=== PATIENT | male | born 1970 | race Caucasian/White ===

== ENCOUNTER 2016-12-16 11:54 | Emergency (ER) | payer MEDICAID ==
[~2016-12-16] VITALS: Ht 188 cm; Wt 85.3 kg
[2016-12-16 12:05] VITALS: BP_SYST 127
[2016-12-16 12:49] LABS: BLOOD, URINE NEGATIVE (NEGATIVE); CLARITY/URINE CLEAR (CLEAR); COLOR,URINE YELLOW (YELLOW); GLUCOSE,URINE NEGATIVE (NEGATIVE); KETONES,URINE NEGATIVE (NEGATIVE); LEUKOCYTE ESTERASE ,URINE NEGATIVE (NEGATIVE); NITRITE, URINE NEGATIVE (NEGATIVE); PH,URINE 5.5 (5.0-8.0); PROTEIN URINE TRACE (NEGATIVE); UROBILINOGEN,URINE 0.2 (0.2-1.0)
[2016-12-16 12:58] LABS: BILIRUBIN,URINE 1+ (NEGATIVE)
[2016-12-16 13:02] LABS: BACTERIA,URINE FEW /HPF (None Seen); MUCUS,URINE 1+ /LPF (None Seen); RBC,URINE 0-3 /HPF (0-3); WBC,URINE 0-3 /HPF (0-3)
[2016-12-16 13:02] LABS: CALCIUM 9.1 mg/dL (8.4-11.0); CREATININE 1.04 mg/dL (0.55-1.30); POTASSIUM 3.7 mmol/L (3.5-5.1)
[2016-12-16 13:03] LABS: BASOPHILS # (AUTO) 0.1 K/uL (0.0-0.2); BASOPHILS % (AUTO) 1.5 % (0.0-2.0); EOSINOPHILS # (AUTO) 0.3 K/uL (0.0-0.4); EOSINOPHILS % (AUTO) 3.9 % (0.0-4.0); HEMATOCRIT 53.4 % (36-54); HEMOGLOBIN 17.5 g/dL (14.0-18.0); LYMPHOCYTES # (AUTO) 1.5 K/uL (1.0-5.5); LYMPHOCYTES % (AUTO) 18.5 % (20.5-51.5); MEAN CORPUSCULAR HEMOGLOBIN 32 pg (27-31); MEAN CORPUSCULAR HGB CONC 33 % (32-36); MEAN CORPUSCULAR VOLUME 97 fL (79.0-98.0); MONOCYTES # (AUTO) 0.5 K/uL (0.0-1.0); MONOCYTES % (AUTO) 6.4 % (1.7-9.3); NEUTROPHILS # (AUTO) 5.5 K/uL (1.8-7.7); NEUTROPHILS % (AUTO) 69.7 % (40.0-70.0); PLATELET COUNT (AUTO) 134 K/uL (130-430); RED CELL DISTRIBUTION WIDTH 12.9 % (9.0-15.0); WHITE BLOOD COUNT (AUTO) 7.9 K/uL (4.8-10.8)
[2016-12-16 13:06] LABS: TOTAL BILIRUBIN 0.5 mg/dL (0.0-1.0); TOTAL PROTEIN, SERUM 7.8 g/dL (6.4-8.3)
[2016-12-16 13:08] LABS: PROTHROMBIN TIME 10.7 SECS (9.5-12.5)
[2016-12-16 14:03] VITALS: BP_SYST 126
== END 2016-12-16 14:03 | disposition home or self-care (01) ==
LOC: SED 11:54
DX: R10.84 Generalized abdominal pain (principal); R11.2 Nausea with vomiting, unspecified; R19.7 Diarrhea, unspecified
CPT/HCPCS: 36415; 80053; 81000-TC; 82150-TC; 83690-TC; 85025; 85610-TC; 85730-TC; 99285

== ENCOUNTER 2016-12-27 05:01 | Emergency (ER) | payer MEDICAID ==
[~2016-12-27] VITALS: Ht 185.4 cm; Wt 83.9 kg
[2016-12-27 05:01] VITALS: BP 148/96; PULSE 76; RESP 18; TEMP 97.4; O2SAT 98
--- NOTE | 2016-12-27 05:01 | NUR ---
Patient to ER bed 6 to gown for evaluation. Side rails up. Report given to OLIVE HERNANDEZ.
--- NOTE | 2016-12-27 05:30 | NUR ---
PT C/O LEFT FLANK PAIN 02/14 SINCE TUESDAY, NON RADIATING. NO N/V/D. NO SOB OR DISTRESS. SAFETY PRECAUTIONS IN PLACE, WILL CONTINUE TO MONITOR.
--- NOTE | 2016-12-27 05:45 | NUR ---
ER Dr. MADDOX at bedside examining patient.
[2016-12-27] MEDS ORDERED: NACL 0.9% 1,000 ML IV ONE ×2 (05:49→07:45)
--- NOTE | 2016-12-27 05:55 | NUR ---
Pt complaining of 7/10 sharp pain in left flank, will notify Dr. Julian.
[2016-12-27] MEDS ORDERED: KETOROLAC TROMETHAMINE 30 MG VIAL IVP ONE (06:00)
[2016-12-27] MEDS ORDERED: MORPHINE 4 MG/ML INJ. SYRINGE IVP ONE ×2 (06:00→07:45)
--- NOTE | 2016-12-27 06:05 | NUR ---
# 20 gauge angiocath placed to left hand. Use of asceptic technique. Opsite placed over site. Blood return noted. Blood for lab drawn from site. Flushed with 10 cc of normal saline. No evidence of infiltration noted. Patient tolerated well.
[2016-12-27 07:12] LABS: BILIRUBIN,URINE NEGATIVE (NEGATIVE); BLOOD, URINE 2+ (NEGATIVE); CLARITY/URINE SL HAZY (CLEAR); COLOR,URINE YELLOW (YELLOW); GLUCOSE,URINE NEGATIVE (NEGATIVE); KETONES,URINE NEGATIVE (NEGATIVE); LEUKOCYTE ESTERASE ,URINE 1+ (NEGATIVE); NITRITE, URINE NEGATIVE (NEGATIVE); PH,URINE 7.5 (5.0-8.0); PROTEIN URINE NEGATIVE (NEGATIVE); UROBILINOGEN,URINE 0.2 (0.2-1.0)
--- NOTE | 2016-12-27 07:15 | NUR ---
Pt reports pain continuing to resolve.No acute distress noted.
--- NOTE | 2016-12-27 07:17 | NUR ---
ENDORSED CARE TO DAY NURSE MARY ROLON AND MARY HARLEY AT BEDSIDE.
[2016-12-27 07:32] LABS: BACTERIA,URINE FEW /HPF (None Seen)
[2016-12-27 07:39] LABS: CALCIUM 7.9 mg/dL (8.4-11.0); CREATININE 0.74 mg/dL (0.55-1.30); POTASSIUM 3.5 mmol/L (3.5-5.1)
[2016-12-27 07:40] LABS: BASOPHILS # (AUTO) 0.1 K/uL (0.0-0.2); BASOPHILS % (AUTO) 1.2 % (0.0-2.0); EOSINOPHILS # (AUTO) 0.2 K/uL (0.0-0.4); EOSINOPHILS % (AUTO) 1.9 % (0.0-4.0); HEMATOCRIT 42.4 % (36-54); HEMOGLOBIN 14.3 g/dL (14.0-18.0); LYMPHOCYTES # (AUTO) 1.6 K/uL (1.0-5.5); LYMPHOCYTES % (AUTO) 16.3 % (20.5-51.5); MEAN CORPUSCULAR HEMOGLOBIN 33 pg (27-31); MEAN CORPUSCULAR HGB CONC 34 % (32-36); MEAN CORPUSCULAR VOLUME 97 fL (79.0-98.0); MONOCYTES # (AUTO) 0.5 K/uL (0.0-1.0); MONOCYTES % (AUTO) 4.7 % (1.7-9.3); NEUTROPHILS # (AUTO) 7.4 K/uL (1.8-7.7); NEUTROPHILS % (AUTO) 75.9 % (40.0-70.0); PLATELET COUNT (AUTO) 108 K/uL (130-430); RED BLOOD CELL COUNT(AUTO) 4.37 MIL/uL (4.2-6.2); RED CELL DISTRIBUTION WIDTH 13.3 % (9.0-15.0); WHITE BLOOD COUNT (AUTO) 9.8 K/uL (4.8-10.8)
[2016-12-27 07:44] LABS: ALBUMIN 3.2 g/dL (3.4-4.8); TOTAL BILIRUBIN 0.5 mg/dL (0.0-1.0); TOTAL PROTEIN, SERUM 6.1 g/dL (6.4-8.3)
[2016-12-27] MEDS ORDERED: cefTRIAXone 1 GM IVPB PREMIX 50 ML IV ONE (07:45)
--- NOTE | 2016-12-27 07:50 | NUR ---
Pt reports continued 6/10 pain left flank.
--- NOTE | 2016-12-27 08:05 | NUR ---
After administration of morphine pt is complaining of burning and itching to left hand. Discussed with Dr. Julian. New order for Benadryl 25mg, which was given as ordered.
[2016-12-27] MEDS ORDERED: DIPHENHYDRAMINE INJ 50 MG/ML VIAL IVP ONE (08:15)
[2016-12-27 09:00] VITALS: BP 137/84; PULSE 54; RESP 20; TEMP 97.4; O2SAT 96
--- NOTE | 2016-12-27 09:00 | NUR ---
Patient given written and verbal discharge instructions and verbalizes understanding. ER MD discussed with patient the results and treatment provided including ACI. Patient in stable condition. ID arm band removed. IV catheter removed intact and dressing applied, no active bleeding. Rx of Macrobid and Naprosyn given. Patient educated on pain management and to follow up with PMD. Pain Scale 1. Opportunity for questions provided and answered.
== END 2016-12-27 09:00 | disposition home or self-care (01) ==
LOC: SED 05:01
DX: N20.0 Calculus of kidney (principal); K21.9 Gastro-esophageal reflux disease without esophagitis; Z87.442 Personal history of urinary calculi
CPT/HCPCS: 36415; 74176; 80053; 81000; 85025; 87086; 96361; 96365; 96375; 96376; 99285; J0696; J1200; J1885; J2270; J7030

== ENCOUNTER 2018-05-28 19:24 | Emergency (ER) | payer MEDICAID ==
[~2018-05-28] VITALS: Ht 188 cm; Wt 81.6 kg
[2018-05-28 19:34] VITALS: BP_SYST 149
[2018-05-28] MEDS ORDERED: LIDOCAINE 2%, 20 ML MDV ONE (20:42)
[2018-05-28] MEDS ORDERED: DIPH-TET-PERTUS Vaccine 0.5 ML VIAL (ADACEL) I.M. ONE (21:00)
[2018-05-28] MEDS ORDERED: BACITRACIN 1 GM OINT TP ONE (21:00)
== END 2018-05-28 21:28 | disposition home or self-care (01) ==
LOC: SED 19:24
DX: S61.213A Laceration without foreign body of left middle finger without damage to nail, initial encounter (principal); K21.9 Gastro-esophageal reflux disease without esophagitis; Z87.442 Personal history of urinary calculi; W26.0XXA Contact with knife, initial encounter; Y93.89 Activity, other specified; Y92.89 Other specified places as the place of occurrence of the external cause; Y99.8 Other external cause status
CPT/HCPCS: 12001; 90471; 90715; 99283; J2001

== ENCOUNTER 2018-11-30 00:02 | Emergency (ER) | payer SELFPAY ==
[~2018-11-30] VITALS: Ht 188 cm; Wt 83.9 kg
--- NOTE | 2018-11-30 00:35 | NUR ---
Patient to ER bed 2 to gown for evaluation. Side rails up.
[2018-11-30 00:38] VITALS: BP_SYST 128
--- NOTE | 2018-11-30 00:40 | NUR ---
Pt C/O Lt finger pain since Tuesday. Pt states he cut his 4th digit on the LT hand with "plastic glass". Tetanus shot is up to date. Finger is swollen and pink, cap refill is immediate, denies any other symptoms at this time. Will continue to monitor.
--- NOTE | 2018-11-30 00:50 | NUR ---
ER Dr. Garcia at bedside examining patient.
[2018-11-30] MEDS ORDERED: IBUPROFEN 800 MG TABLET PO ONE (01:00)
[2018-11-30] MEDS ORDERED: SULFAMETHOXAZOLE/TRIMETHOPR DS 1 TABLET PO ONE (01:00)
--- NOTE | 2018-11-30 01:30 | NUR ---
Patient given written and verbal discharge instructions and verbalizes understanding. ER MD discussed with patient the results and treatment provided. Patient in stable condition. ID arm band removed. Rx of Bactrim given. Patient educated on pain management and to follow up with PMD. Pain Scale 0/10. Opportunity for questions provided and answered. Medication side effect fact sheet provided.
[2018-11-30 01:31] VITALS: BP_SYST 128
== END 2018-11-30 01:30 | disposition home or self-care (01) ==
LOC: SED 00:02
DX: L08.89 Other specified local infections of the skin and subcutaneous tissue (principal); M79.645 Pain in left finger(s); K21.9 Gastro-esophageal reflux disease without esophagitis; Z87.442 Personal history of urinary calculi
CPT/HCPCS: 99283

== ENCOUNTER 2018-12-02 23:25 | Emergency (ER) | payer MEDICAID ==
[~2018-12-02] VITALS: Ht 185.4 cm; Wt 83.9 kg
[2018-12-02 23:35] VITALS: BP_SYST 166
[2018-12-03] MEDS ORDERED: NACL 0.9% 1,000 ML IV ONE (00:15)
[2018-12-03] MEDS ORDERED: fentaNYL CITRATE/PF 100 MCG/2 ML AMP IVP ONE ×2 (00:15→01:30)
[2018-12-03 00:57] LABS: BASOPHILS # (AUTO) 0.1 K/uL (0.0-0.2); BASOPHILS % (AUTO) 0.9 % (0.0-2.0); EOSINOPHILS # (AUTO) 0.6 K/uL (0.0-0.4); EOSINOPHILS % (AUTO) 4.8 % (0.0-4.0); HEMATOCRIT 47.5 % (36-54); HEMOGLOBIN 16.2 g/dL (14.0-18.0); LYMPHOCYTES # (AUTO) 1.9 K/uL (1.0-5.5); LYMPHOCYTES % (AUTO) 14.3 % (20.5-51.5); MEAN CORPUSCULAR HEMOGLOBIN 33 pg (27-31); MEAN CORPUSCULAR HGB CONC 34 % (32-36); MEAN CORPUSCULAR VOLUME 97 fL (79.0-98.0); MONOCYTES # (AUTO) 0.6 K/uL (0.0-1.0); MONOCYTES % (AUTO) 4.5 % (1.7-9.3); PLATELET COUNT (AUTO) 179 K/uL (130-430); RED CELL DISTRIBUTION WIDTH 13.9 % (9.0-15.0); WHITE BLOOD COUNT (AUTO) 13.2 K/uL (4.8-10.8)
[2018-12-03] MEDS ORDERED: CLINDAMYCIN 900 mg/50mL D5W 50 ML IV ONE (01:00)
[2018-12-03 01:09] LABS: CALCIUM 8.8 mg/dL (8.4-11.0); CREATININE 1.08 mg/dL (0.55-1.30); POTASSIUM 3.5 mmol/L (3.5-5.1)
[2018-12-03 01:14] LABS: ALBUMIN 3.9 g/dL (3.4-4.8); INR 0.9 (0.80-1.20); PROTHROMBIN TIME 9.2 SECS (9.5-12.5); TOTAL BILIRUBIN 0.7 mg/dL (0.0-1.0)
[2018-12-03] MEDS ORDERED: IBUP-1969 PO (01:16)
[2018-12-03 01:20] LABS: NEUTROPHILS % (AUTO) 75.5 % (40.0-70.0)
[2018-12-03 02:55] VITALS: BP_SYST 146
== END 2018-12-03 02:55 | disposition home or self-care (01) ==
LOC: SED 23:25
DX: L03.012 Cellulitis of left finger (principal); K21.9 Gastro-esophageal reflux disease without esophagitis; Z87.442 Personal history of urinary calculi
CPT/HCPCS: 29130; 36415; 73130; 80053; 83605; 85025; 85610; 85730; 87040; 96365; 96375; 99284; J3010; J3490; J7030

== ENCOUNTER 2018-12-06 00:48 | Inpatient (IN) | payer MEDICAID ==
[~2018-12-06] VITALS: Ht 188 cm; Wt 83.9 kg
[~2018-12-06 00:48] MED LIST: IBUP-1969 PO
[2018-12-06 01:00] VITALS: BP_SYST 138
--- NOTE | 2018-12-06 01:00 | NUR ---
Patient to ER bed 04 to gown for evaluation. Side rails up.
--- NOTE | 2018-12-06 01:05 | NUR ---
Patient AOx4, ambulatory, presents to ER with complaint of left 4th finger discharge, erythema, and swelling x 2 weeks. Patient states throbbing 9/10 pain to site. 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 Patient states since incident initially happend, he has been seen in ER 3 times. Patient states taking Keflex and Tramadol with minimal relief. Patient states he noted discoloration "white and purple" to finger today. No report of fever. at bedside.
--- NOTE | 2018-12-06 01:15 | NUR ---
ER MD Santnaa at bedside for medical evaluation.
[2018-12-06 02:01] LABS: HEMATOCRIT 42.3 % (36-54); HEMOGLOBIN 14.7 g/dL (14.0-18.0); MEAN CORPUSCULAR HEMOGLOBIN 33 pg (27-31); MEAN CORPUSCULAR HGB CONC 35 % (32-36); MEAN CORPUSCULAR VOLUME 96 fL (79.0-98.0); PLATELET COUNT (AUTO) 115 K/uL (130-430); RED BLOOD CELL COUNT(AUTO) 4.43 MIL/uL (4.2-6.2); RED CELL DISTRIBUTION WIDTH 13.6 % (9.0-15.0); WHITE BLOOD COUNT (AUTO) 10.9 K/uL (4.8-10.8)
--- NOTE | 2018-12-06 02:12 | NUR ---
MD Santana at bedside for finger I&D.
[2018-12-06] MEDS ORDERED: LIDOCAINE 1% 10 MG/ML, 20 ML MDV INJ ONE ×2 (02:15→12:00)
[2018-12-06 02:27] LABS: ATYPICAL LYMPHOCYTES % 0 % (0-0); BAND % (MANUAL) 3 % (0-6); BASOPHILS % (MANUAL) 1 % (0-2); EOSINOPHILS % (MANUAL) 6 % (0-7); LYMPHOCYTES % (MANUAL) 18 % (20-46); METAMYELOCYTES % 0 % (0-0); MONOCYTES % (MANUAL) 7 % (0-11); MYELOCYTES % 0 % (0-0); PROMYELOCYTES % 1 % (0-0)
[2018-12-06] MEDS ORDERED: MORPHINE 4 MG/ML INJ. SYRINGE IVP ONE (03:00)
[2018-12-06] MEDS ORDERED: VANCOMYCIN HCL 1,000 MG in NS 250 ML IV ONE (03:00)
--- NOTE | 2018-12-06 03:42 | NUR ---
# 20 gauge angiocath placed to . Use of asceptic technique. Opsite placed over site. Blood return noted. Flushed with 10 cc of normal saline. No evidence of infiltration noted. Patient tolerated well.
[2018-12-06] MEDS ORDERED: VANCOMYCIN HCL 1000 MG/VIAL IV ONE (03:54)
--- NOTE | 2018-12-06 04:00 | NUR ---
Medication reconciliation completed with information provided by patient "no home meds". Any prior medication reconciliation on file was reviewed and corrected.
--- NOTE | 2018-12-06 04:05 | NUR ---
End of life care decisions discussed with patient by Dr. Santana. Opportunity for questions and concerns addressed. Patient's code status is FULL CODE, paperwork completed and placed in chart.
[2018-12-06] MEDS ORDERED: ONDANSETRON HCL 4 MG/2 ML VIAL ONE (04:10)
[2018-12-06 04:12] LABS: ERYTHROCYTE SEDIMENTATION RATE 13 MM/HR (0-15)
[2018-12-06] MEDS ORDERED: ONDANSETRON HCL 4 MG/2 ML VIAL IVP ONE (04:30)
--- NOTE | 2018-12-06 04:40 | NUR ---
Patient will be admitted to care of Ana Rosario Admitted to Med Surg unit. Will go to room 135. Belongings list completed. Summary report printed. Report will be given at bedside.
--- NOTE | 2018-12-06 04:58 | NUR ---
ADMISSION NOTE Received patient from ER via gurney. Patient admitted with diagnosis of Cellulitis. Patient is awake, alert, oriented X 4. Patient oriented to hospital room, call light, toileting, pain management and safety-teach back done. Patient informed that MARY Rios will be primary nurse and that their room number is 111A. Personal belongings checked and Belongings List documented. Call light within reach.
[2018-12-06 05:04] VITALS: BP_SYST 126
--- NOTE | 2018-12-06 05:04 | NUR ---
CONSULTATION PAGED/CALLED Reason for Consultation: CELLULITIS Person Who was Notified:HERMELINDO Consulting Physician: DEMETRIA Ordnance Equipment Worker Specialty: ORTHO Ordering Physician: AYDI
--- NOTE | 2018-12-06 05:06 | NUR ---
CONSULTATION PAGED/CALLED Reason for Consultation: CELLULITIS Person Who was Notified: HERMELINDO Consulting Physician: EDILBERTO Traffic Assistant Specialty: ID Ordering Physician: YADI
[2018-12-06] MEDS ORDERED: ACETAMINOPHEN 325 MG TABLET PO PRN (06:00)
[2018-12-06] MEDS ORDERED: LORazepam 2 MG/ML VIAL IVP PRN (06:00)
[2018-12-06] MEDS ORDERED: HYDROcodone/ACETAMIN 5-325 MG TAB (NORCO/ VICODIN) PO PRN (06:00)
[2018-12-06] MEDS: NORMAL SALINE 5 ML DISP.SYRIN IVF SCH ×3 (06:17→19:50)
--- NOTE | 2018-12-06 06:34 | NUR ---
PHOTO PICTURE TAKEN OF LEFT RING FINGER WOUND AND PUT IN MD , FOLDER .
--- NOTE | 2018-12-06 07:10 | NUR ---
received report from dinae nurse at the bedside.
[2018-12-06 08:01] VITALS: BP_SYST 119
[2018-12-06] MEDS: HYDROcodone/ACETAMIN 10-325 MG TAB PO PRN ×2 (08:38→13:06)
--- NOTE | 2018-12-06 09:00 | NUR ---
refused to have dressing on left ring finger.
--- NOTE | 2018-12-06 09:32 | NUR ---
patient resting had pain medication given.
--- NOTE | 2018-12-06 10:25 | NUR ---
RESTING AND STABLE.
[2018-12-06] MEDS ORDERED: fentaNYL CITRATE/PF 100 MCG/2 ML AMP IVP ONE (12:00)
[2018-12-06] MEDS ORDERED: LR 1,000 ML IV.SOLN IV ONE (12:00)
[2018-12-06] MEDS ORDERED: PROPOFOL 200MG/ 20ML VIAL (DIPRIVAN) IV ONE (12:00)
[2018-12-06] MEDS ORDERED: BUPIVACAINE /PF 0.5% 30 ML VIAL INJ ONE (12:00)
[2018-12-06] MEDS ORDERED: MIDAZOLAM HCL 5 MG/5 ML VIAL IVP ONE (12:00)
[2018-12-06 12:03] VITALS: BP_SYST 132
[2018-12-06] MEDS: CLINDAMYCIN 600 MG in D5W 50 ML IV SCH ×3 (12:56→23:02)
--- NOTE | 2018-12-06 13:06 | NUR ---
norco 10/325mg po given. verbalized it does not help with my pain.
--- NOTE | 2018-12-06 13:19 | NUR ---
CLEOCIN IV GIVEN. FLUSH WITH 10CC NORMAL SALINE.
[2018-12-06] MEDS: VANCOMYCIN HCL 1,000 MG in NS 250 ML IV SCH ×2 (15:08→23:01)
--- NOTE | 2018-12-06 15:10 | NUR ---
vancomycin iv hanged at this time.
[2018-12-06 15:20] VITALS: BP_SYST 137
[2018-12-06] MEDS: ONDANSETRON HCL 4 MG/2 ML VIAL IVP PRN (15:58)
--- NOTE | 2018-12-06 15:58 | NUR ---
had vomitted x 1. food particles about 250cc. zofran 4 mg iv given. made comfortable.
--- NOTE | 2018-12-06 16:52 | NUR ---
fixed iv access. no leaking noted. still on vancomycin iv antibiotics.
--- NOTE | 2018-12-06 17:13 | NUR ---
ORTHO CONSULT DUE TO PATIENT'S MEDICAL INSURANCE, DR BRAVO CANNOT SEE PATIENT, DOESN'T ACCEPT HIS INSURANCE. DR Ana JOHNSON MADE AWARE.
--- NOTE | 2018-12-06 17:30 | NUR ---
new iv access placed on the right forearm #22.
--- NOTE | 2018-12-06 18:04 | NUR ---
seen by dr perez and made orders.
--- NOTE | 2018-12-06 18:14 | NUR ---
MRI QUESTIONNAIRE NEEDS TO BE COMPLETED BY THE PATIENT.
--- NOTE | 2018-12-06 18:21 | NUR ---
PATIENT IS RESTING.
--- NOTE | 2018-12-06 19:00 | NUR ---
closing notes: patient quite and resting. no complained of pain noted. breathing even and unlabored. call lights within reach. bed in low position. still refusing to have dressing on the left ring finger. instructed to call the nurse for help. all needs are met.
--- NOTE | 2018-12-06 19:20 | NUR ---
endorsed to incoming nurse Nidhi RN.
--- NOTE | 2018-12-06 19:30 | NUR ---
Initial Notes Received handoff report from offgoing nurse at the bedside. Patient is awake and alert, resting comfortably in bed. No SOB, no acute distress, no complaints of pain at this time. Bed is locked, in the lowest position, 2x side rails up. Patient refuses bed alarm at this time. Call light is within reach. Encouraged patient to call for assistance. Will continue with plan of care.
[2018-12-06 20:00] VITALS: BP_SYST 113
--- NOTE | 2018-12-06 20:00 | NUR ---
Dressing change performed to left 4th finger as needed. Patient initially refused treatment. Risks and benefits explained to the patient, and patient agreed upon treatment to the wound. Wound cleansed with NS, covered with nonadherent dressing, taped. Patient stated that this is all he wants for his finger, and refuses any further treatment at this time.
--- NOTE | 2018-12-06 21:32 | NUR ---
Patient is resting comfortably in bed with eyes closed. No SOB, no acute distress, no signs of pain or facial grimacing noted. Breathing even and unlabored with visible chest rise and fall noted. Call light within reach.
--- NOTE | 2018-12-06 23:54 | NUR ---
Patient is awake and alert, ambulated from restroom to bed independently without assistance. Gait is steady. Patient is requesting for IV pain medication for his left finger, states that it is throbbing, but currently he is having N/V from [place] pain medication and refusing [place]. Will page . Call light within reach. Encouraged patient to call for assistance.
--- NOTE | 2018-12-07 00:03 | NUR ---
Paged Dr Hobson. Spoke with David. Awaiting for call back.
--- NOTE | 2018-12-07 00:08 | NUR ---
Dr Hobson called back. Informed him that the patient is complaining of pain, and requesting IV pain med, stating that the Rufus medication makes him N/V. Dr Hobson ordered Morphine Sulfate 2mg IVP Q4H PRN for severe pain.
[2018-12-07] MEDS: ONDANSETRON HCL 4 MG/2 ML VIAL IVP PRN (00:24)
[2018-12-07] MEDS: MORPHINE 4 MG/ML INJ. SYRINGE IVP PRN ×2 (00:25→10:31)
[2018-12-07 01:16] VITALS: BP_SYST 144
--- NOTE | 2018-12-07 01:30 | NUR ---
Patient resting comfortably in bed, eyes closed. Breathing even and unlabored with visible chest rise and fall noted. No SOB, no acute distress, no signs of pain or facial grimacing noted. Bed is locked, in the lowest position, 2x side rails up. Call light within reach.
--- NOTE | 2018-12-07 04:09 | NUR ---
Patient resting comfortably in bed, eyes closed. Visible chest rise and fall noted. No signs of pain or facial grimacing at this time. Call light within reach.
[2018-12-07] MEDS: CLINDAMYCIN 600 MG in D5W 50 ML IV SCH ×3 (05:36→18:11)
[2018-12-07] MEDS: NORMAL SALINE 5 ML DISP.SYRIN IVF SCH ×3 (05:36→22:00)
--- NOTE | 2018-12-07 06:34 | NUR ---
Closing Notes Patient resting comfortably in bed, awake and alert. No SOB, no acute distress, no complaints of pain at this time. IV site dressing is clean and dry. Bed is locked, in the lowest position, 2x side rails up. Patient refuses bed alarm. Call light within reach. Fall and safety precautions maintained. All needs have been met during this shift. Will endorse care to oncoming dayshift nurse.
[2018-12-07 06:37] LABS: BASOPHILS # (AUTO) 0.1 K/uL (0.0-0.2); BASOPHILS % (AUTO) 0.6 % (0.0-2.0); EOSINOPHILS # (AUTO) 0.7 K/uL (0.0-0.4); EOSINOPHILS % (AUTO) 7.7 % (0.0-4.0); HEMATOCRIT 43.9 % (36-54); HEMOGLOBIN 15.1 g/dL (14.0-18.0); LYMPHOCYTES # (AUTO) 1.3 K/uL (1.0-5.5); LYMPHOCYTES % (AUTO) 14.9 % (20.5-51.5); MEAN CORPUSCULAR HEMOGLOBIN 33 pg (27-31); MEAN CORPUSCULAR HGB CONC 35 % (32-36); MEAN CORPUSCULAR VOLUME 96 fL (79.0-98.0); MONOCYTES # (AUTO) 0.5 K/uL (0.0-1.0); NEUTROPHILS # (AUTO) 6.2 K/uL (1.8-7.7); PLATELET COUNT (AUTO) 157 K/uL (130-430); RED CELL DISTRIBUTION WIDTH 13.6 % (9.0-15.0); WHITE BLOOD COUNT (AUTO) 8.8 K/uL (4.8-10.8)
[2018-12-07 06:58] LABS: C-REACTIVE PROTEIN QUANT 4.7 mg/dL (0-0.5); CALCIUM 8.7 mg/dL (8.4-11.0); CREATININE 0.78 mg/dL (0.55-1.30); POTASSIUM 3.6 mmol/L (3.5-5.1)
--- NOTE | 2018-12-07 07:10 | NUR ---
received report from vikas nurse at the bedside. patient breathing even and unlabored. lungs bilaterally clear. has iv access on the rt forearm dry/intact. has non adhesive dressing on the left ring finger. dry and intact. bed in low position. call lights within reach. instructed to call for assistance.
[2018-12-07 08:00] VITALS: BP_SYST 147
--- NOTE | 2018-12-07 08:00 | NUR ---
vitals signs stable. no pain noted.
--- NOTE | 2018-12-07 09:00 | NUR ---
at the bathroom. urinating.
--- NOTE | 2018-12-07 09:30 | NUR ---
seen by dr perez
[2018-12-07 09:37] LABS: ERYTHROCYTE SEDIMENTATION RATE 14 MM/HR (0-15)
--- NOTE | 2018-12-07 10:00 | NUR ---
due medication given as ordered.
[2018-12-07 10:07] LABS: NEUTROPHILS % (AUTO) 70.8 % (40.0-70.0)
[2018-12-07] MEDS: VANCOMYCIN HCL 1,000 MG in NS 250 ML IV SCH ×2 (10:31→16:27)
[2018-12-07 12:00] VITALS: BP_SYST 136
--- NOTE | 2018-12-07 12:00 | NUR ---
had eaten lunch. stable.
--- NOTE | 2018-12-07 13:00 | NUR ---
had mri of the left finger done.
[2018-12-07 16:00] VITALS: BP_SYST 142
--- NOTE | 2018-12-07 16:00 | NUR ---
vancomycin iv antibiotic.
--- NOTE | 2018-12-07 17:00 | NUR ---
seen by dr lema
--- NOTE | 2018-12-07 18:58 | NUR ---
cleocin iv antibiotic.
--- NOTE | 2018-12-07 19:00 | NUR ---
patient walking at the hallway with the . stable no pain nor acute distress noted
--- NOTE | 2018-12-07 19:15 | NUR ---
endorsed to incoming nite nurse Coleen HERNANDEZ
[2018-12-07 20:00] VITALS: BP_SYST 139
--- NOTE | 2018-12-07 20:00 | NUR ---
INITIAL NOTES: RECEIVED REPORT FROM MARY KEANE,PATIENT SEEN WALKING ON HALLWAY WITH . ANTIBIOTIC INFUSING WELL. TO LFA ,SITE CLEAR.DRESSING TO LEFT 4TH FINGER CELLULITIS.FEELS SLIGHT PAIN THIS TIME. ROOM AIR. AMBULATORY. VOIDS FREELY.WILL MONITOR CLOSELY.
--- NOTE | 2018-12-07 21:00 | NUR ---
SHOWER: TOLERATED WELL A SHOWER.
--- NOTE | 2018-12-07 23:00 | NUR ---
RESTING QUIETELY WITH EYES CLOSE. EASILY AROUSED.CALL LIGHT WITHIN REACH.
[2018-12-08 00:15] VITALS: BP_SYST 126
--- NOTE | 2018-12-08 00:50 | NUR ---
DUE IVPB INFUSED. IV SITE CLEAR.
[2018-12-08] MEDS: CLINDAMYCIN 600 MG in D5W 50 ML IV SCH ×5 (00:54→23:49)
[2018-12-08] MEDS: VANCOMYCIN HCL 1,000 MG in NS 250 ML IV SCH ×4 (01:39→23:49)
--- NOTE | 2018-12-08 02:40 | NUR ---
PATIENT SLEEPING THIS ROUNDS.BREATHING PATTERN REGULAR.
--- NOTE | 2018-12-08 04:00 | NUR ---
PATIENT CONTINUE RESTING QUIETELY WITH EYES CLOSE.
[2018-12-08] MEDS: NORMAL SALINE 5 ML DISP.SYRIN IVF SCH ×3 (06:00→20:24)
--- NOTE | 2018-12-08 06:30 | NUR ---
CLOSING: SLEPT AT LONG INTERVALS.NO ACUTE DISTRESS. ALL NEEDS WERE ATTENDED.VOIDED FREELY INSIDE BATHROOM.HAD TOLERABLE PAIN ON FINGER. WILL ENDORSE CARE TO AM RN FOR FURTHER CARE.
[2018-12-08 06:51] LABS: BASOPHILS # (AUTO) 0.1 K/uL (0.0-0.2); BASOPHILS % (AUTO) 1.8 % (0.0-2.0); EOSINOPHILS # (AUTO) 0.9 K/uL (0.0-0.4); EOSINOPHILS % (AUTO) 11.2 % (0.0-4.0); HEMATOCRIT 44.7 % (36-54); HEMOGLOBIN 15.1 g/dL (14.0-18.0); LYMPHOCYTES # (AUTO) 1.7 K/uL (1.0-5.5); LYMPHOCYTES % (AUTO) 21.2 % (20.5-51.5); MEAN CORPUSCULAR HEMOGLOBIN 32 pg (27-31); MEAN CORPUSCULAR HGB CONC 34 % (32-36); MEAN CORPUSCULAR VOLUME 96 fL (79.0-98.0); MONOCYTES # (AUTO) 0.7 K/uL (0.0-1.0); MONOCYTES % (AUTO) 8.4 % (1.7-9.3); NEUTROPHILS # (AUTO) 4.7 K/uL (1.8-7.7); NEUTROPHILS % (AUTO) 57.4 % (40.0-70.0); PLATELET COUNT (AUTO) 201 K/uL (130-430); RED BLOOD CELL COUNT(AUTO) 4.67 MIL/uL (4.2-6.2); RED CELL DISTRIBUTION WIDTH 13.4 % (9.0-15.0); WHITE BLOOD COUNT (AUTO) 8.1 K/uL (4.8-10.8)
[2018-12-08 07:28] LABS: C-REACTIVE PROTEIN QUANT 2.5 mg/dL (0-0.5); CALCIUM 8.6 mg/dL (8.4-11.0); CREATININE 0.84 mg/dL (0.55-1.30); POTASSIUM 3.9 mmol/L (3.5-5.1)
[2018-12-08 08:00] VITALS: BP_SYST 124
--- NOTE | 2018-12-08 08:00 | NUR ---
AM NOTES IN BED, AWAKE. DENIES ANY PAIN OR DISCOMFORT. DRESSING NOTED ON THE LEFT 4TH FINGER. AMBULATE WITH STEADY GAIT. SAFETY PRECAUTION OBSERVED. CALL LIGHT WITHIN REACH. WILL MONITOR.
[2018-12-08 08:01] LABS: ERYTHROCYTE SEDIMENTATION RATE 12 MM/HR (0-15)
[2018-12-08 11:33] VITALS: BP_SYST 125
--- NOTE | 2018-12-08 12:07 | NUR ---
notes- in bed, resting. Denies any pain or discomfort. Enc to call for help as needed. will monitor.
--- NOTE | 2018-12-08 14:53 | NUR ---
CONSULTATION PAGED/CALLED Reason for Consultation: [] L FOURTH FINGER ABSCESS Person Who was Notified: [] LUCIE Consulting Physician: [] DR Stacy ORTEGA Trailer Park Manager Specialty: [] GEN SURGEON Ordering Physician: [] DR Priyank JOHNSON
--- NOTE | 2018-12-08 15:11 | NUR ---
notes- Spoke to Dr. Franki MD stated he will see the patient.
[2018-12-08 15:39] VITALS: BP_SYST 134
--- NOTE | 2018-12-08 17:00 | NUR ---
MD ROUNDS Seen by Dr. Doan at bedside and explain to patient about the procedure.
--- NOTE | 2018-12-08 18:33 | NUR ---
Notes- In bed, family at bedside and bring food. instructed patient to be NPO after midnight. Pt verbalize understanding.
[2018-12-08 19:00] VITALS: BP_SYST 137
[2018-12-08 20:00] VITALS: BP_SYST 137
[2018-12-08] MEDS: MORPHINE 4 MG/ML INJ. SYRINGE IVP PRN (20:21)
[2018-12-09] MEDS: MORPHINE 4 MG/ML INJ. SYRINGE IVP PRN (00:05)
[2018-12-09 02:10] VITALS: BP_SYST 144
[2018-12-09] MEDS: CLINDAMYCIN 600 MG in D5W 50 ML IV SCH ×2 (05:32→12:00)
[2018-12-09] MEDS: NORMAL SALINE 5 ML DISP.SYRIN IVF SCH ×2 (05:32→14:26)
[2018-12-09 05:54] LABS: BILIRUBIN,URINE NEGATIVE (NEGATIVE); BLOOD, URINE NEGATIVE (NEGATIVE); CLARITY/URINE CLEAR (CLEAR); COLOR,URINE YELLOW (YELLOW); GLUCOSE,URINE NEGATIVE (NEGATIVE); KETONES,URINE NEGATIVE (NEGATIVE); LEUKOCYTE ESTERASE ,URINE NEGATIVE (NEGATIVE); NITRITE, URINE NEGATIVE (NEGATIVE); PROTEIN URINE NEGATIVE (NEGATIVE)
--- NOTE | 2018-12-09 06:40 | NUR ---
pt.is to submit to I&D:lt.hand;4th digit.12/09/18 per .federico;rn has assisted w/the surgical check-list. mrsa;nares screen collected;pre-op,ua;urine collected pre-op.pt.has been npo:midnight.i have administered the cleocin: abx;ipvb:600a dose.pt had requested medication;pain x2 dose w/in the shift i had administer [id number] ivp.pt.ids ambulatory;gait w/in normal limits;steady.general status stable.respiratory status stable@room air:02-sat%=98%@ room air.no c/o nausea.call light/telephone w/in the reach of the pt.
[2018-12-09 06:59] LABS: BASOPHILS # (AUTO) 0.1 K/uL (0.0-0.2); BASOPHILS % (AUTO) 1.2 % (0.0-2.0); EOSINOPHILS # (AUTO) 0.9 K/uL (0.0-0.4); EOSINOPHILS % (AUTO) 10.6 % (0.0-4.0); HEMATOCRIT 43.3 % (36-54); HEMOGLOBIN 14.6 g/dL (14.0-18.0); LYMPHOCYTES # (AUTO) 2.1 K/uL (1.0-5.5); LYMPHOCYTES % (AUTO) 23.4 % (20.5-51.5); MEAN CORPUSCULAR HEMOGLOBIN 32 pg (27-31); MEAN CORPUSCULAR HGB CONC 34 % (32-36); MEAN CORPUSCULAR VOLUME 95 fL (79.0-98.0); MONOCYTES # (AUTO) 0.7 K/uL (0.0-1.0); MONOCYTES % (AUTO) 8.1 % (1.7-9.3); NEUTROPHILS % (AUTO) 56.7 % (40.0-70.0); PLATELET COUNT (AUTO) 171 K/uL (130-430); RED BLOOD CELL COUNT(AUTO) 4.56 MIL/uL (4.2-6.2); RED CELL DISTRIBUTION WIDTH 13.2 % (9.0-15.0); WHITE BLOOD COUNT (AUTO) 8.9 K/uL (4.8-10.8)
[2018-12-09 07:27] LABS: CALCIUM 8.8 mg/dL (8.4-11.0); CREATININE 0.81 mg/dL (0.55-1.30); POTASSIUM 3.4 mmol/L (3.5-5.1)
[2018-12-09 07:28] LABS: C-REACTIVE PROTEIN QUANT 1.6 mg/dL (0-0.5)
[2018-12-09 07:54] VITALS: BP_SYST 133
--- NOTE | 2018-12-09 08:01 | NUR ---
AM NOTES- IN BED, NO DISTRESS. KEEP NPO FOR PROCEDURE. PATIENT'S VERBALIZE UNDERSTANDING.
[2018-12-09 08:23] LABS: ERYTHROCYTE SEDIMENTATION RATE 12 MM/HR (0-15)
[2018-12-09] MEDS: VANCOMYCIN HCL 1,000 MG in NS 250 ML IV SCH ×2 (08:33→15:53)
--- NOTE | 2018-12-09 10:00 | NUR ---
CHG BATH GIVEN.
[2018-12-09] MEDS ORDERED: ONDANSETRON HCL 4 MG/2 ML VIAL IVP PRN (10:45)
[2018-12-09] MEDS ORDERED: fentaNYL CITRATE/PF 100 MCG/2 ML AMP IVP PRN ×2 (10:45)
--- NOTE | 2018-12-09 11:30 | NUR ---
Notes- pt went OR at this time.
[2018-12-09] MEDS ORDERED: POLYMYXIN 500,000/BACIT.10,000 UNITS in NS IRR 1 L IR ONE (12:50)
[2018-12-09] MEDS ORDERED: traMADol HCL HCL 50 MG TABLET (ULTRAM) PO PRN (13:00)
--- NOTE | 2018-12-09 14:07 | NUR ---
Notes- Recieved pt from recovery, awake, alert and oriented. dressing on the left 4th finger is dry and intact. v/s stable. no acute distress noted. will monitor.
[2018-12-09 16:00] VITALS: BP_SYST 130
[2018-12-09 16:02] VITALS: BP_SYST 128
--- NOTE | 2018-12-09 16:11 | NUR ---
NOTES- PT IN BED AND VERY UPSET AND WANTS TO GO HOME. HE STATED THAT SURGEON CLEARED HER TO GO HOME. INFORMED PATIENT THAT HE PROBABLY NEEDS PRESCRIPTION FOR ANTIBIOTICS AND WOUND CARE AT HOME. PER PATIENT HE CAN COME BACK HERE FOR RX AND WOUND CARE. PT KEEPS SAYING THAT HE IS VERY UPSET NOW AND WANTS TO GO HOME. INFORMED PATIENT THAT HE CAN TALK TO THE CHARGE NURSE FOR HIS COMPLAIN. CHARGED NURSE INFORMED.
--- NOTE | 2018-12-09 16:17 | NUR ---
NOTES- CALLED DR. JOHNSON. WAITING FOR MD TO CALL BACK.
--- NOTE | 2018-12-09 16:40 | NUR ---
NOTES- SPOKE TO DR. JOHNSON AND MADE AWARE ABOUT PATIENT'S WANTS TO GO HOME. MD ORDERED TO DISCHARGE PATIENT AND LET PATIENT'S PHARMACY TO CALL HIM FOR ANTIBIOTICS PRESCRIPTION AND PROVIDE PATIENT'S SOME SUPPLIES FOR WOUND CARE.
[2018-12-09 16:45] VITALS: BP_SYST 135
--- NOTE | 2018-12-09 18:00 | NUR ---
CALLED AND SPOKE TO DR. JOHNSON AND PROVIDED PATIENT'S PHARMACY TEL. NO. FOR THE ANTIBIOTICS. DISCUSSED WITH PATIENT AND FAMILY.
--- NOTE | 2018-12-09 18:15 | NUR ---
Notes- D/C PT HOME WITH WOUND CARE SUPPLIES. PAIN IS CONTROLLED AT THIS TIME. DRESSING ON THE LEFT FINGER IS DRY AND INTACT. INSTRUCTED PATIENT AND ON WOUND CARE ORDERS. PT AND FAMILY VERBALIZE UNDERSTNDING. DISCHARGE INSTRUCTION , FOLLOW UP CARE DISCUSSED WITH PATIENT. VERBALIZE UNDERSTANDING. IVL REMOVED. PT IS NOT UPSET ANYMORE AND HAPPY TO GO HOME.
== END 2018-12-09 18:15 | disposition home or self-care (01) | DRG 364 ==
LOC: SED 00:48 → SMU 04:36
PROVIDERS: ADMIT Preventive Medicine Preventive Medicine/Occupational Environmental Medicine; ATTEND Preventive Medicine Preventive Medicine/Occupational Environmental Medicine
PROC: 0HCGXZZ Extirpation of Matter from Left Hand Skin, External Approach (ICD-10-PCS; 2018-12-09)
PROC: 0JBK0ZZ Excision of Left Hand Subcutaneous Tissue and Fascia, Open Approach (ICD-10-PCS; principal; 2018-12-09 11:00)
DX: S61.225A Laceration with foreign body of left ring finger without damage to nail, initial encounter (principal); E87.1 Hypo-osmolality and hyponatremia; L03.012 Cellulitis of left finger; M86.8X4 Other osteomyelitis, hand; L02.512 Cutaneous abscess of left hand; M65.842 Other synovitis and tenosynovitis, left hand; F12.90 Cannabis use, unspecified, uncomplicated; K21.9 Gastro-esophageal reflux disease without esophagitis; B95.61 Methicillin susceptible Staphylococcus aureus infection as the cause of diseases classified elsewhere; J45.909 Unspecified asthma, uncomplicated; X58.XXXA Exposure to other specified factors, initial encounter; Y93.89 Activity, other specified; Y92.89 Other specified places as the place of occurrence of the external cause; Y99.8 Other external cause status; Z87.442 Personal history of urinary calculi
CPT/HCPCS: 36415; 73140-TC; 73221; 80048; 80202-TC; 81003; 82565-TC; 85007; 85025; 85027; 85651-TC; 86140; 87040-TC; 87070; 87070-TC; 87075-TC; 87081; 87186-TC; 88302; 88304; 96365; 96366; 96375; 99285; J2001; J2250; J2270; J2405; J2704; J3010; J3370; J3490; J7040; J7050; J7060; J7120

== ENCOUNTER 2019-08-29 09:09 | Emergency (ER) | payer MEDICAID ==
[~2019-08-29] VITALS: Ht 188 cm; Wt 88.5 kg
[2019-08-29 09:25] VITALS: BP_SYST 127
--- NOTE | 2019-08-29 09:25 | NUR ---
Patient to ER bed 5 to gown for evaluation. Side rails up.
--- NOTE | 2019-08-29 09:31 | NUR ---
ER at bedside examining patient.
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
--- NOTE | 2019-08-29 09:50 | NUR ---
Medicated the pt w/ Toradol. Will reassess
[2019-08-29] MEDS ORDERED: KETOROLAC TROMETHAMINE 30 MG VIAL IM ONE (10:00)
[2019-08-29 10:06] VITALS: BP_SYST 127
--- NOTE | 2019-08-29 10:07 | NUR ---
Patient given written and verbal discharge instructions and verbalizes understanding. ER MD discussed with patient the results and treatment provided. Patient in stable condition. ID arm band removed. Patient educated on pain management and to follow up with PMD. Pain Scale 3. Opportunity for questions provided and answered. Medication side effect fact sheet provided.
== END 2019-08-29 10:06 | disposition home or self-care (01) ==
LOC: SED 09:09
DX: S29.012A Strain of muscle and tendon of back wall of thorax, initial encounter (principal); K21.9 Gastro-esophageal reflux disease without esophagitis; F12.90 Cannabis use, unspecified, uncomplicated; Z87.442 Personal history of urinary calculi; X50.0XXA Overexertion from strenuous movement or load, initial encounter; Y93.89 Activity, other specified; Y92.89 Other specified places as the place of occurrence of the external cause; Y99.8 Other external cause status
CPT/HCPCS: 96372; 99283; J1885

== ENCOUNTER 2019-09-16 23:56 | Emergency (ER) | payer MEDICAID ==
[~2019-09-16] VITALS: Ht 188 cm; Wt 88.5 kg
[2019-09-17 00:15] VITALS: BP_SYST 147
[2019-09-17] MEDS ORDERED: KETOROLAC TROMETHAMINE 30 MG VIAL IM ONE (01:15)
[2019-09-17 01:34] VITALS: BP_SYST 122
== END 2019-09-17 01:34 | disposition home or self-care (01) ==
LOC: SED 23:56
DX: L02.211 Cutaneous abscess of abdominal wall (principal); K21.9 Gastro-esophageal reflux disease without esophagitis; K40.91 Unilateral inguinal hernia, without obstruction or gangrene, recurrent; Z87.442 Personal history of urinary calculi
CPT/HCPCS: 96372; 99283; J1885

== ENCOUNTER 2019-09-20 08:33 | Emergency (ER) | payer MEDICAID ==
[~2019-09-20] VITALS: Ht 188 cm; Wt 86.2 kg
[2019-09-20 08:41] VITALS: BP_SYST 159
[2019-09-20] MEDS: IBUPROFEN 800 MG TABLET PO ONE (09:54)
[2019-09-20] MEDS: LIDOCAINE 1% 10 MG/ML, 20 ML MDV INJ ONE (09:55)
[2019-09-20 10:58] VITALS: BP_SYST 151
== END 2019-09-20 10:58 | disposition home or self-care (01) ==
LOC: SED 08:33
DX: L02.214 Cutaneous abscess of groin (principal); K21.9 Gastro-esophageal reflux disease without esophagitis; F17.200 Nicotine dependence, unspecified, uncomplicated; Z87.442 Personal history of urinary calculi
CPT/HCPCS: 99283

== ENCOUNTER 2019-09-22 14:12 | Emergency (ER) | payer MEDICAID ==
[~2019-09-22] VITALS: Ht 188 cm; Wt 82.6 kg
[2019-09-22 14:39] VITALS: BP_SYST 123
[2019-09-22] MEDS ORDERED: MORPHINE 4 MG/ML INJ. SYRINGE IVP ONE (18:30)
[2019-09-22 19:14] LABS: CALCIUM 8.5 mg/dL (8.4-11.0); CREATININE 0.83 mg/dL (0.55-1.30); POTASSIUM 3.3 mmol/L (3.5-5.1)
[2019-09-22 19:15] LABS: WHITE BLOOD COUNT (AUTO) 7.4 K/uL (4.8-10.8)
[2019-09-22 19:19] LABS: HEMATOCRIT 44.9 % (36-54); HEMOGLOBIN 15.3 g/dL (14.0-18.0); MEAN CORPUSCULAR HEMOGLOBIN 33 pg (27-31); MEAN CORPUSCULAR HGB CONC 34 % (32-36); MEAN CORPUSCULAR VOLUME 97 fL (79.0-98.0); PLATELET COUNT (AUTO) 194 K/uL (130-430); RED BLOOD CELL COUNT(AUTO) 4.62 MIL/uL (4.2-6.2); RED CELL DISTRIBUTION WIDTH 13.9 % (9.0-15.0)
[2019-09-22 19:25] VITALS: BP_SYST 123
[2019-09-22 19:30] LABS: ALBUMIN 3.3 g/dL (3.4-4.8); TOTAL BILIRUBIN 0.4 mg/dL (0.0-1.0)
[2019-09-22 20:20] LABS: BAND % (MANUAL) 1 % (0-6); BASOPHILS % (MANUAL) 0 % (0-2); EOSINOPHILS % (MANUAL) 4 % (0-7); LYMPHOCYTES % (MANUAL) 28 % (20-46); MONOCYTES % (MANUAL) 23 % (0-11)
== END 2019-09-22 19:25 | disposition home or self-care (01) ==
LOC: SED 14:12
DX: Z48.00 Encounter for change or removal of nonsurgical wound dressing (principal)
CPT/HCPCS: 36415; 80053; 85007; 85027; 99283

== ENCOUNTER 2019-10-11 09:21 | Emergency (ER) | payer MEDICAID ==
[~2019-10-11] VITALS: Ht 188 cm; Wt 83.0 kg
[2019-10-11 09:36] VITALS: BP_SYST 142
[2019-10-11] MEDS ORDERED: SULF-261 PO (09:36)
--- NOTE | 2019-10-11 09:44 | NUR ---
PATIENT TO WAITING ROOM, STABLE; UNCHANGED
--- NOTE | 2019-10-11 10:14 | NUR ---
PATIENT TO ER #5
--- NOTE | 2019-10-11 10:25 | NUR ---
pt came to ER for back pain 02/14. Resting in [facility] at this time VSS, awaiting
[2019-10-11] MEDS ORDERED: KETOROLAC TROMETHAMINE 60 MG/2 ML VIAL IM ONE (10:30)
--- NOTE | 2019-10-11 10:30 | NUR ---
ER at bedside examining patient.
--- NOTE | 2019-10-11 11:30 | NUR ---
Note undone in EDM - 10/11/19 at 1202 by [email or web address] Patient given written and verbal discharge instructions and verbalizes understanding. ER discussed with patient the results and treatment provided. Patient in stable condition. ID arm band removed. Rx of Ibuprofen given. Patient educated on pain management and to follow up with PMD. Pain Scale 2. Opportunity for questions provided and answered. Medication side effect fact sheet provided.
--- NOTE | 2019-10-11 11:30 | NUR ---
Patient given written and verbal discharge instructions and verbalizes understanding. ER MD discussed with patient the results and treatment provided. Patient in stable condition. ID arm band removed. Rx of [place] and Naprosyn given. Patient educated on pain management and to follow up with PMD. Pain Scale 2. Opportunity for questions provided and answered. Medication side effect fact sheet provided.
[2019-10-11 11:33] VITALS: BP_SYST 142
== END 2019-10-11 11:33 | disposition home or self-care (01) ==
LOC: SED 09:21
DX: S29.012A Strain of muscle and tendon of back wall of thorax, initial encounter (principal); K21.9 Gastro-esophageal reflux disease without esophagitis; Z87.442 Personal history of urinary calculi; W17.89XA Other fall from one level to another, initial encounter; Y93.89 Activity, other specified; Y92.89 Other specified places as the place of occurrence of the external cause; Y99.8 Other external cause status
CPT/HCPCS: 72072; 99283; J1885

== ENCOUNTER 2020-10-20 12:32 | Emergency (ER) | payer MEDICAID ==
[~2020-10-20] VITALS: Ht 185.4 cm; Wt 86.2 kg
[2020-10-20 12:32] VITALS: BP_SYST 156
[~2020-10-20 12:32] MED LIST changes: +SULF-261 PO
[2020-10-20] MEDS ORDERED: [UNRECOGNIZED DRUG - OTHER] OP (13:01)
[2020-10-20 13:13] VITALS: BP_SYST 149
== END 2020-10-20 13:13 | disposition home or self-care (01) ==
LOC: SED 12:32
DX: H10.11 Acute atopic conjunctivitis, right eye (principal); K21.9 Gastro-esophageal reflux disease without esophagitis; Z87.442 Personal history of urinary calculi; Z79.899 Other long term (current) drug therapy
CPT/HCPCS: 99283

== ENCOUNTER 2022-08-07 15:03 | Emergency (ER) | payer MEDICAID ==
[~2022-08-07] VITALS: Ht 185.4 cm; Wt 90.7 kg
[~2022-08-07 15:03] MED LIST changes: +[UNRECOGNIZED DRUG - OTHER] OP
[2022-08-07 15:05] VITALS: BP_SYST 140
[2022-08-07] MEDS ORDERED: ceFAZolin SODIUM 2 GM VIAL IM ONE (15:30)
[2022-08-07] MEDS ORDERED: KETOROLAC TROMETHAMINE 30 MG VIAL IM ONE (15:30)
[2022-08-07] MEDS ORDERED: ceFAZolin SODIUM 1 GM VIAL IM ONE (15:45)
[2022-08-07] MEDS ORDERED: IBUP-1971 PO (16:08)
[2022-08-07] MEDS ORDERED: CEPH250C PO (16:08)
== END 2022-08-07 16:50 | disposition home or self-care (01) ==
LOC: SED 15:03
DX: L03.116 Cellulitis of left lower limb (principal); M79.662 Pain in left lower leg; K21.9 Gastro-esophageal reflux disease without esophagitis; F17.200 Nicotine dependence, unspecified, uncomplicated; Z79.899 Other long term (current) drug therapy
CPT/HCPCS: 99284; 96372; J0690; J1885

== ENCOUNTER 2022-08-09 22:14 | Emergency (ER) | payer MEDICAID ==
[~2022-08-09] VITALS: Ht 185.4 cm; Wt 90.7 kg
[~2022-08-09 22:14] MED LIST changes: +CEPH250C PO; +IBUP-1971 PO
[2022-08-09 22:45] VITALS: BP_SYST 130
--- NOTE | 2022-08-09 22:53 | NUR ---
Patient triaged and placed in waiting room. VS checked and patient appears in no acute distress at this time. Accompanied by family, awaiting available bed, and MD notified of need for MSE.
--- NOTE | 2022-08-09 23:23 | NUR ---
ER in triage examining patient.
[2022-08-10] MEDS ORDERED: cefTRIAXone 1 GM VIAL IM ONE
[2022-08-10] MEDS ORDERED: KETOROLAC TROMETHAMINE 30 MG VIAL IM ONE
--- NOTE | 2022-08-10 00:08 | NUR ---
Patient wheeled to [facility] for further treatment
[2022-08-10] MEDS ORDERED: LIDOCAINE 1%, 20 ML MDV 20 ML ONE (00:23)
--- NOTE | 2022-08-10 00:30 | NUR ---
Pt report received. Pt c/o Left leg pain with redness and swelling x 4 days. Denies trauma to extremity. Pt states that he was recently dx with cellulitis caused by a bug bite. Arrives with crutches.
--- NOTE | 2022-08-10 02:40 | NUR ---
PATIENT RESTING ON GURNEY, EASY TO AROUSE, STATES PAIN IS BETTER. NO S/S OF ANY DISTRESS NOTED AT THIS TIME. WILL CONTINUE TO MONITOR.
[2022-08-10] MEDS ORDERED: SULF1TAB48 PO (02:43)
--- NOTE | 2022-08-10 03:06 | NUR ---
Dr. Mistry discussing results with pt.
[2022-08-10 03:32] VITALS: BP_SYST 128
--- NOTE | 2022-08-10 03:32 | NUR ---
Patient given written and verbal discharge instructions and verbalizes understanding. ER MD discussed with patient the results and treatment provided. Patient in stable condition. ID arm band removed. Rx of Bactrim DS given. Patient educated on pain management and to follow up with PMD. Pain Scale 3/10. Opportunity for questions provided and answered. Medication side effect fact sheet provided.
== END 2022-08-10 03:32 | disposition home or self-care (01) ==
LOC: SED 22:14
DX: L03.115 Cellulitis of right lower limb (principal); M79.661 Pain in right lower leg; Z79.899 Other long term (current) drug therapy
CPT/HCPCS: 99284; 93971; 96372; J0696; J1885; J2001

== ENCOUNTER 2022-09-13 17:49 | Emergency (ER) | payer MEDICAID ==
[~2022-09-13] VITALS: Ht 185.4 cm; Wt 86.2 kg
[~2022-09-13 17:49] MED LIST changes: +SULF1TAB48 PO
[2022-09-13 18:05] VITALS: BP_SYST 128
[2022-09-13] MEDS: KETOROLAC TROMETHAMINE 30 MG VIAL IM ONE (20:03)
[2022-09-13] MEDS ORDERED: SULF1TAB48 PO (20:14)
[2022-09-13 20:20] VITALS: BP_SYST 126
== END 2022-09-13 20:20 | disposition home or self-care (01) ==
LOC: SED 17:49
DX: L02.214 Cutaneous abscess of groin (principal); K21.9 Gastro-esophageal reflux disease without esophagitis; Z79.899 Other long term (current) drug therapy
CPT/HCPCS: 99283; 96372; J1885